=== PATIENT | male | born 1990 | race Caucasian/White ===

== ENCOUNTER 2020-10-26 18:44 | Emergency (ER) | payer OTHER ==
--- NOTE | 2020-10-26 19:22 | EDM.PDOCBH ---
ED HPI GENERAL MEDICAL PROBLEM - General Chief Complaint: Drug or Alcohol Abuse Stated Complaint: ALCOHOL DETOX Time Seen by Provider: 10/26/20 19:06 Source of Information: Reports: Patient History Limitations: Reports: No Limitations - History of Present Illness INITIAL COMMENTS - FREE TEXT/NARRATIVE: Patient presents requesting a referral for alcohol treatment. The patient s tates that he has been drinking excessively since 2010 and of late drinks about 1/2 gallon a day. He did drink that much already today. He states he has decided to quit. He brings along his significant other. He states that some days he gets nauseated and shaky during the day. He is otherwise healthy without chronic medical problems. No shortness of breath, chest pain, abdominal pain, dysuria. He states he eats and drinks well. He has a regular job. - Related Data Allergies Allergy/AdvReac Type Severity Reaction Status Date / Time Pertussis Vaccines Allergy Other Verified 10/26/20 18:52 Home Meds: Home Meds . [No Known Home Meds] 10/26/20 [History] Past Medical History - Past Health History Medical/Surgical History: Denies Medical/Surgical History - Infectious Disease History Infectious Disease History: Reports: Chicken Pox Social & Family History - Tobacco Use Tobacco Use Status *Q: Current Every Day Tobacco User Years of Tobacco use: 13 Packs/Tins Daily: 1 - Caffeine Use Caffeine Use: Reports: None - Recreational Drug Use Recreational Drug Use: No ED ROS GENERAL - Review of Systems Review Of Systems: Comprehensive ROS is negative, except as noted in HPI. ED EXAM, BEHAVIORAL HEALTH - Physical Exam Exam: See Below Exam Limited By: No Limitations General Appearance: Alert, No Apparent Distress Ears: Normal External Exam Nose: Normal Inspection Throat/Mouth: Normal Inspection Head: Atraumatic, Normocephalic Neck: Normal Inspection Respiratory/Chest: No Respiratory Distress Cardiovascular: Normal Peripheral Pulses GI/Abdominal: Soft Back Exam: Normal Inspection Extremities: Normal Inspection Neurological: Alert, Normal Mood/Affect, Normal Cognition, No Motor/Sensory Deficits, Oriented x 3 Psychiatric: Alert, Normal Affect, Normal Cognition, Normal Mood, Oriented Skin Exam: Warm, Dry, Intact, Normal color, No rash COURSE, BEHAVIORAL HEALTH COMP - Course Vital Signs: Last Vital Signs Temp 36.1 C 10/26/20 18:52 Pulse 77 10/26/20 18:52 Resp 20 10/26/20 18:52 BP 128/91 H 10/26/20 18:52 Pulse Ox 95 10/26/20 18:52 Departure - Departure Time of Disposition: 19:26 Disposition: Home, Self-Care 01 Condition: Good Clinical Impression: Alcoholism /alcohol abuse - Discharge Information Referrals: PCP,None [Primary Care Provider] - [facility] [Outside] [facility] [Outside] [email or web address] [Outside] Additional Instructions: The following information is given to patients seen in the emergency department who are being discharged to home. This information is to outline your options for follow-up care. We provide all patients seen in our emergency department with a follow-up referral. The need for follow-up, as well as the timing and circumstances, are variable depending upon the specifics of your emergency department visit. If you don't have a primary care physician on staff, we will provide you with a referral. We always advise you to contact your personal physician following an emergency department visit to inform them of the circumstance of the visit and for follow-up with them and/or the need for any referrals to a consulting specialist. The emergency department will also refer you to a specialist when appropriate. This referral assures that you have the opportunity for follow-up care with a specialist. All of these measure are taken in an effort to provide you with optimal care, which includes your follow-up. Under all circumstances we always encourage you to contact your private physician who remains a resource for coordinating your care. When calling for follow-up care, please make the office aware that this follow-up is from your recent emergency room visit. If for any reason you are refused follow-up, please contact the [facility] Emergency Depar tment at and asked to speak to the emergency department charge nurse. 1. Congratulations on deciding to quit drinking alcohol and start a new life! 2. Call [facility] at the number provided 8 AM in the morning. They also have general intake between 8 and 8:45 in the morning. They will assist you in your treatment program. Sepsis Event Note (ED) - Evaluation Sepsis Screening Result: No Definite Risk - Focused Exam Vital Signs: Vital Signs Temp Pulse Resp BP Pulse Ox 10/26/20 18:52 36.1 C 77 20 128/91 H 95
== END 2020-10-26 19:30 | disposition home or self-care (01) ==
LOC: MW.ED 18:44
DX: F10.20 Alcohol dependence, uncomplicated (principal); Z72.0 Tobacco use; Z88.7 Allergy status to serum and vaccine
CPT/HCPCS: 99283

== ENCOUNTER 2020-10-27 01:03 | Emergency (ER) | payer OTHER ==
[2020-10-27] MEDS ORDERED: Ondansetron 4 MG Tab.DIS PO ONE (01:29)
[2020-10-27] MEDS ORDERED: Thiamine 100 MG Tab PO ONE (01:30)
[2020-10-27] MEDS ORDERED: Folic Acid 1 MG Tab PO ONE (01:30)
--- NOTE | 2020-10-27 01:35 | EDM.PDOC ---
ED HPI GENERAL MEDICAL PROBLEM - General Chief Complaint: General Stated Complaint: ALCOHOLISM Time Seen by Provider: 10/27/20 01:30 Source of Information: Reports: Patient History Limitations: Reports: No Limitations - History of Present Illness INITIAL COMMENTS - FREE TEXT/NARRATIVE: Patient is a 29-year-old male who presents today for alcohol intoxication. Patient states that he was seen here earlier was given resources regarding alcohol detox. Patient states that he went to [place] [facility] for evaluation again where his alcohol level was still elevated they offer him observation there until he can be seen for detox per patient left. Patient states that it he came back today because he thinks he needs help with alcohol intoxication. Patient girlfriend at bedside and states that he has been vomiting and has not had a drink since he went to the ER at [place] was about 4-5 hours ago. Patient has no pain abdominal pain fevers or other complaints. - Related Data Allergies Allergy/AdvReac Type Severity Reaction Status Date / Time Pertussis Vaccines Allergy Other Verified 10/27/20 01:26 Home Meds: Home Meds . [No Known Home Meds] 10/26/20 [History] Past Medical History - Past Health History Medical/Surgical History: Denies Medical/Surgical History - Infectious Disease History Infectious Disease History: Reports: Chicken Pox Social & Family History - Caffeine Use Caffeine Use: Reports: None ED ROS GENERAL - Review of Systems Review Of Systems: Comprehensive ROS is negative, except as noted in HPI. ED EXAM, GENERAL - Physical Exam Exam: See Below Exam Limited By: No Limitations General Appearance: Alert, WD/WN Eye Exam: Bilateral Eye: EOMI, PERRL Head: Atraumatic Respiratory/Chest: No Respiratory Distress, Lungs Clear, Normal Breath Sounds Cardiovascular: Normal Peripheral Pulses, Regular Rate, Rhythm GI/Abdominal: Normal Bowel Sounds, Soft, Non-Tender Extremities: Normal Inspection, Normal Range of Motion Neurological: Alert, Oriented, CN II-XII Intact, Normal Cognition, Normal Gait, Other (no tremor) Course - Vital Signs Last Recorded V/S: Last Vital Signs Temp 98.0 F 10/27/20 01:17 Pulse 83 10/27/20 01:17 Resp 14 10/27/20 01:17 BP 128/89 10/27/20 01:17 Pulse Ox 97 10/27/20 01:17 - Orders/Labs/Meds Orders: Active Orders 24 hr Category Date Time Status chlordiazePOXIDE [Librium] Med 10/27/20 02:29 Once 25 mg PO ONETIME ONE Labs: Laboratory Tests 10/27/20 10/27/20 10/27/20 Range/Units 01:42 01:42 02:00 WBC 4.06 (4.0-11.0) K/uL RBC 4.52 (4.50-5.90) M/uL Hgb 15.3 (13.0-17.0) g/dL Hct 44.0 (38.0-50.0) % MCV 97.3 (80.0-98.0) fL MCH 33.8 H (27.0-32.0) pg MCHC 34.8 (31.0-37.0) g/dL RDW Std Deviation 45.5 (28.0-62.0) fl RDW Coeff of Bryce 13 (11.0-15.0) % Plt Count 189 (150-400) K/uL MPV 10.00 (7.40-12.00) fL Neut % (Auto) 64.0 (48.0-80.0) % Lymph % (Auto) 29.6 (16.0-40.0) % [place] % (Auto) 4.7 (0.0-15.0) % Eos % (Auto) 0.7 (0.0-7.0) % Baso % (Auto) 1.0 (0.0-1.5) % Neut # (Auto) 2.6 (1.4-5.7) K/uL Lymph # (Auto) 1.2 (0.6-2.4) K/uL [place] # (Auto) 0.2 (0.0-0.8) K/uL Eos # (Auto) 0.0 (0.0-0.7) K/uL Baso # (Auto) 0.0 (0.0-0.1) K/uL Nucleated RBC % 0.0 /100WBC Nucleated RBCs # 0 K/uL Sodium 142 (136-148) mmol/L Potassium 3.6 (3.5-5.1) mmol/L Chloride 104 (98-107) mmol/L Carbon Dioxide 22.2 (21.0-32.0) mmol/L BUN 8 (7.0-18.0) mg/dL Creatinine 1.0 (0.8-1.3) mg/dL Est Cr Clr Drug Dosing TNP Estimated GFR (MDRD) > 60.0 ml/min Glucose 107 H (74-106) mg/dL Calcium 8.0 L (8.5-10.1) mg/dL Total Bilirubin 0.5 (0.2-1.0) mg/dL AST 177 H (15-37) IU/L ALT 113 H (14-63) IU/L Alkaline Phosphatase 47 (46-116) U/L Creatine Kinase 114 (26-308) U/L Total Protein 7.0 (6.4-8.2) g/dL Albumin 4.0 (3.4-5.0) g/dL Globulin 3.0 (2.6-4.0) g/dL Albumin/Globulin Ratio 1.3 (0.9-1.6) Urine Opiates Screen NEGATIVE (NEGATIVE) Ur Oxycodone Screen NEGATIVE (NEGATIVE) Urine Methadone Screen NEGATIVE (NEGATIVE) Ur Barbiturates Screen NEGATIVE (NEGATIVE) Ur Phencyclidine Scrn NEGATIVE (NEGATIVE) Ur Amphetamine Screen NEGATIVE (NEGATIVE) U Methamphetamines Scrn NEGATIVE (NEGATIVE) U Benzodiazepines Scrn NEGATIVE (NEGATIVE) U Cocaine Metab Screen NEGATIVE (NEGATIVE) U Marijuana (THC) Screen NEGATIVE (NEGATIVE) Ethyl Alcohol 269 mg/dL Meds: Medications Discontinued Medications Generic Name Dose Route Start Last Admin Trade Name Freq PRN Reason Stop Dose Admin Folic Acid 1 mg 10/27/20 01:30 10/27/20 01:59 Folic Acid PO 10/27/20 01:31 1 mg ONETIME ONE Administration Ondansetron HCl 4 mg 10/27/20 01:29 10/27/20 01:44 Zofran Odt PO 10/27/20 01:30 4 mg ONETIME ONE Administration Thiamine HCl 100 mg 10/27/20 01:30 10/27/20 01:59 Vitamin B-1 PO 10/27/20 01:31 100 mg ONETIME ONE Administration - Re-Assessments/Exams Free Text/Narrative Re-Assessment/Exam: 10/27/20 02:29 And is resting comfortably in chair has no signs of withdrawal on exam. Patient was given information for outpatient detox in the open 8 AM patient can be seen there in the morning. Patient will be discharged home. Departure - Departure Time of Disposition: 02:30 Disposition: Home, Self-Care 01 Condition: Good Clinical Impression: Alcohol intoxication - Discharge Information *PRESCRIPTION DRUG MONITORING PROGRAM REVIEWED*: Not Applicable *COPY OF PRESCRIPTION DRUG MONITORING REPORT IN PATIENT LEATHA: Not Applicable Instructions: Alcohol Intoxication, Pult-uj-Gyis Referrals: PCP,None [Primary Care Provider] - Forms: ED Department Discharge Additional Instructions: The following information is given to patients seen in the emergency department who are being discharged to home. This information is to outline your options for follow-up care. We provide all patients seen in our emergency department with a follow-up referral. The need for follow-up, as well as the timing and circumstances, are variable depending upon the specifics of your emergency department visit. If you don't have a primary care physician on staff, we will provide you with a referral. We always advise you to contact your personal physician following an emergency department visit to inform them of the circumstance of the visit and for follow-up with them and/or the need for any referrals to a consulting specialist. The emergency department will also refer you to a specialist when appropriate. This referral assures that you have the opportunity for follow-up care with a specialist. All of these measure are taken in an effort to provide you with optimal care, which includes your follow-up. Under all circumstances we always encourage you to contact your private physician who remains a resource for coordinating your care. When calling for follow-up care, please make the office aware that this follow-up is from your recent emergency room visit. If for any reason you are refused follow-up, please contact the [facility] Emergency Department at and asked to speak to the emergency department charge nurse. Please follow up with your primary care physician. If you do not have a primary care physician, see below: [facility] [address] [place] [id number] [facility] [address] [place] [phone] Follow-up tomorrow morning a.m. with the detox center. If you have any signs of withdrawal such as intense shaking difficulty ambulating please return to the ED. Sepsis Event Note (ED) - Evaluation Sepsis Screening Result: No Definite Risk - Focused Exam Vital Signs: Vital Signs Temp Pulse Resp BP Pulse Ox 10/27/20 01:17 98.0 F 83 14 128/89 97 - My Orders Last 24 Hours: My Active Orders 10/27/20 02:29 chlordiazePOXIDE [Librium] 25 mg PO ONETIME ONE - Assessment/Plan Last 24 Hours: My Active Orders 10/27/20 02:29 chlordiazePOXIDE [Librium] 25 mg PO ONETIME ONE Assessment:: Patient is a 29-year-old male who presents today for alcohol intoxication. Patient is requesting to go to detox. Patient has no tremor or tongue fasciculations on examination. Patient did report some vomiting. We spoke to the ER in [place] and patient was given thiamine and magnesium there was appears to be a banana bag. Will give Zofran obtain labs alcohol level and reassess.
[2020-10-27 02:08] LABS: BLOOD UREA NITROGEN,BUN 8 mg/dL (7.0-18.0); CARBON DIOXIDE,CO2 22.2 mmol/L (21.0-32.0); CHLORIDE,CL 104 mmol/L (98-107); GLUCOSE RANDOM 107 mg/dL (74-106); POTASSIUM,K 3.6 mmol/L (3.5-5.1); SODIUM,NA 142 mmol/L (136-148)
[2020-10-27] MEDS ORDERED: chlordiazePOXIDE 25 MG Cap PO ONE (02:29)
== END 2020-10-27 02:53 | disposition home or self-care (01) ==
LOC: MW.ED 01:03
DX: F10.129 Alcohol abuse with intoxication, unspecified (principal); Y90.8 Blood alcohol level of 240 mg/100 ml or more; Z88.7 Allergy status to serum and vaccine
CPT/HCPCS: 36415; 80053; 80179; 80305; 82550; 85025; 99284; A9270; 99282